=== PATIENT | female | born 1995 ===

== ENCOUNTER 2020-02-26 21:53 | Emergency (ER) | payer SELFPAY ==
[2020-02-27 01:02] VITALS: TEMP 97.4; O2SAT 100
[2020-02-27 01:04] VITALS: BP 136/97
--- NOTE | 2020-02-27 19:30 | ER ---
Nurse's Notes [facility] Name: Treasure Carlos Age: 24 yrs Sex: Female : 1995 Arrival Date: 02/26/2020 Time: 21:56 Bed 18 Private MD: Diagnosis: Impacted cerumen, left ear Presentation: 02/25 22:01 Chief complaint: Patient states: L ear pain since 1pm today. Denies drainage. Denies ca1 fever and sore throat. Coronavirus screen: Proceed with normal triage. Patient denies a cough. Patient denies shortness of breath or difficulty breathing. Patient denies measured and/or subjective temperature greater than 100.4F prior to today's visit. Patient denies travel on a cruise ship or to a country the [facility] currently lists as an affected area. Patient denies contact with known and/or suspected case of COVID-19. Ebola Screen: Patient negative for fever greater than or equal to 101.5 degrees Fahrenheit, and additional compatible Ebola Virus Disease symptoms Patient denies exposure to infectious person. Patient denies travel to an Ebola-affected area in the 21 days before illness onset. No symptoms or risks identified at this time. Initial Sepsis Screen: Does the patient meet any 2 criteria? No. Patient's initial sepsis screen is negative. Does the patient have a suspected source of infection? No. Patient's initial sepsis screen is negative. Risk Assessment: Do you want to hurt yourself or someone else? Patient reports no desire to harm self or others. Onset of symptoms was February 26, 2020. 22:01 Method Of Arrival: Ambulatory ca1 22:01 Acuity: HIEN 5 ca1 Triage Assessment: 23:01 General: Behavior is calm, cooperative. General: Appears in no apparent distress. ls4 comfortable. Neuro: No deficits noted. Cardiovascular: No deficits noted. Respiratory: No deficits noted. 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 - Social history:: Smoking status: Patient denies any tobacco usage or history of. Screenin:00 Abuse screen: Denies threats or abuse. Denies injuries from another. Nutritional ls4 screening: No deficits noted. Tuberculosis screening: No symptoms or risk factors identified. Fall Risk None identified. Assessment: 23:00 General: Appears in no apparent distress. comfortable. ls4 23:00 Pain: Complains of pain in left ear Pain currently is 6 out of 10 on a pain scale. ls4 EENT: Ear canal wax noted . 02/26 00:10 Reassessment: Patient appears in no apparent distress at this time. Patient and/or ls4 family updated on plan of care and expected duration. Pain level reassessed. Patient is alert, oriented x 3, equal unlabored respirations, skin warm/dry/pink. ear flushed with warm water with good results. pt tolerated well. Vital Signs: 02/25 22:01 Pulse 85; Resp 16 S; Temp 97.4(TE); Pulse Ox 100% on R/A; Weight 145.15 kg (R); Height ca1 5 ft. 7 in. (170.18 cm) (R); Pain 7/10; 22:04 BP 136 / 97; ca1 22:01 Body Mass Index 50.12 (145.15 kg, 170.18 cm) ca1 ED Course: 21:56 Patient arrived in ED. bp1 22:03 Triage completed. ca1 22:04 Arm band placed on right wrist. ca1 23:00 Side rails up X 1. Pulse ox on. NIBP on. ls4 23:02 Ignacio Abrams PA is PHCP. cp 23:02 Jesus Patel MD is Attending Physician. cp 23:24 Precious Weber, EMELINA is Primary Nurse. ls4 23:40 Adelita Robbins MD is Referral Physician. cp 06 00:40 No apparent distress. ls4 00:40 No provider procedures requiring assistance completed. Patient did not have IV access ls4 during this emergency room visit. Administered Medications: No medications were administered Outcome: 02/25 23:41 Discharge ordered by . cp 02/26 00:42 Discharged to home ambulatory. ls4 Condition: good Discharge instructions given to patient. 00:48 Patient left the ED. ls4 Signatures: Ignacio Abrams PA PA cp Stewart, Lisa RN RN ls4 Mackenzie Haines RN RN ca1 Demetria Ruffin bp1
--- NOTE | 2020-02-27 19:30 | EDPHYS ---
Physician Documentation [facility] Name: Treasure Carlos Age: 24 yrs Sex: Female : 1995 Arrival Date: 02/26/2020 Time: 21:56 Bed 18 Private MD: ED Physician Jesus Patel HPI: 02/25 23:11 This 24 yrs old Female presents to ER via Ambulatory with complaints of Ear Pain. cp 23:11 The patient presents with hearing loss, partial, pain, that is acute. The complaints cp affect the left ear. Onset: The symptoms/episode began/occurred 2 day(s) ago. Associated signs and symptoms: Pertinent negatives: cough, fever, rhinorrhea, sinus trouble, sore throat, vertigo, vomiting. Severity of symptoms: in the emergency department the symptoms are unchanged. 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 - Social history:: Smoking status: Patient denies any tobacco usage or history of. ROS: 23:13 Eyes: Negative for injury, pain, redness, and discharge. cp 23:13 Constitutional: Negative for body aches, chills, fever, poor PO intake. 23:13 ENT: Positive for ear pain, hearing loss, Negative for drainage from ear(s), sore throat, difficulty swallowing, difficulty handling secretions. 23:13 Respiratory: Negative for cough, shortness of breath. 23:13 Abdomen/GI: Negative for abdominal pain, nausea, vomiting, and diarrhea. 23:13 Skin: Negative for rash. 23:13 Neuro: Negative for altered mental status, headache, weakness. 23:13 All other systems are negative. Exam: 23:14 Head/Face: Normocephalic, atraumatic. cp 23:14 Constitutional: The patient appears in no acute distress, alert, awake, non-toxic, well developed, well nourished. 23:14 ENT: External ear(s): are unremarkable, Ear canal(s): cerumen impaction, that is cp moderate, occluding the left ear canal, Examination of the other ear shows no obvious abnormality, right ear. 23:14 Cardiovascular: Rate: normal. 23:14 Respiratory: the patient does not display signs of respiratory distress, Respirations: normal. 23:14 Skin: cellulitis, is not appreciated, no rash present. Vital Signs: 22:01 Pulse 85; Resp 16 S; Temp 97.4(TE); Pulse Ox 100% on R/A; Weight 145.15 kg (R); Height ca1 5 ft. 7 in. (170.18 cm) (R); Pain 7/10; 22:04 BP 136 / 97; ca1 22:01 Body Mass Index 50.12 (145.15 kg, 170.18 cm) ca1 MDM: 23:02 Patient medically screened. cp 23:30 Differential diagnosis: otitis media, otitis externa, foreign body, cerumen impaction. cp 23:40 Data reviewed: vital signs, nurses notes, and as a result, I will discharge patient. cp 23:40 Counseling: I had a detailed discussion with the patient and/or guardian regarding: the cp historical points, exam findings, and any diagnostic results supporting the discharge/admit diagnosis, the need for outpatient follow up, for definitive care, an ENT specialist, to return to the emergency department if symptoms worsen or persist or if there are any questions or concerns that arise at home. 23:40 ED course: Left ear canal irrigated by nursing staff with mild improvement. Will cp discharge to home for continued monitoring. Recommend home ear irrigation. 02/25 23:15 [place] [facility] [place]: please flush and irrigate left ear with warm water; Complete cp Time: 23:38 Administered Medications: No medications were administered Disposition: 02/26 02:19 Co-signature as Attending Physician, Jesus Patel MD. olga Disposition: 02/26/20 23:41 Discharged to Home. Impression: Impacted cerumen, left ear. - Condition is Stable. - Discharge Instructions: Earwax Buildup, Adult, Ear Irrigation. - Medication Reconciliation Form, Thank You Letter, Antibiotic Education, Prescription Opioid Use form. - Follow up: Adelita Robbins MD; When: 2 - 3 days; Reason: Worsening of condition. - Problem is new. - Symptoms have improved. Signatures: Jesus Patel MD MD pkl Page, Corey, PA PA cp Stewart, Lisa, RN RN ls4 Mackenzie Haines RN RN ca1 Corrections: (The following items were deleted from the chart) 00:48 02/25 23:41 02/26/2020 23:41 Discharged to Home. Impression: Impacted cerumen, left ls4 ear. Condition is Stable. Forms are Medication Reconciliation Form, Thank You Letter, Antibiotic Education, Prescription Opioid Use. Follow up: Adelita Robbins; When: 2 - 3 days; Reason: Worsening of condition. Problem is new. Symptoms have improved. cp
== END 2020-02-27 00:48 | disposition home or self-care (01) ==
LOC: ER 21:53
DX: H61.22 Impacted cerumen, left ear (principal)
CPT/HCPCS: 99283